=== PATIENT | female | born 1960 | race Caucasian/White ===

== ENCOUNTER 2019-11-01 17:19 | Outpatient (CLI) | payer OTHER, SELFPAY ==
--- NOTE | ~2019-11-01 | XR_ITS ---
XR ankle RT min 3V, XR foot RT min 3V 11/01/2019 17:57 (accession [id number]), 11/01/2019 17:58 (accession [id number]) Indication: Right ankle and foot pain Procedure: 4 views right ankle and 4 views right foot Comparison: No prior studies for comparison. Findings: There are degenerative calcaneal enthesophytes. Ankle mortise intact. There is cortical irr egularity to the proximal lateral aspect of the cuboid on the oblique view, suspicious for an avulsio n fracture.. Mild degenerative changes of the midfoot. Impression: 1: Possible cuboid avulsion fracture. Correlate for point tenderness.. Reviewed, dictated and finalized at location A. Impression: 1: Possible cuboid avulsion fracture. Correlate for point tenderness.. Impression: 1: Possible cuboid avulsion fracture. Correlate for point tenderness..
== END 2019-11-01 17:20 | disposition home or self-care (01) ==
LOC: ANHIMG 17:27
PROVIDERS: PCP Nurse Practitioner Family; Visit Provider Nurse Practitioner Family
DX: M79.671 Pain in right foot (principal)
CPT/HCPCS: 73610; 73630

== ENCOUNTER 2020-05-10 07:21 | Outpatient (CLI) | payer OTHER, SELFPAY ==
--- NOTE | ~2020-05-10 | MM_ITS ---
EXAMINATION: MM screening adriana BI w michael HISTORY: Screening mammogram TECHNIQUE: Craniocaudal and mediolateral oblique 3-D tomosynthesis images were obtained and synthetic 2-D images were generated. CAD analysis was submitted and interpreted. COMPARISON: No prior mammogram is available for comparison at this institution. BREAST PARENCHYMAL COMPOSITION: There are scattered areas of fibroglandular density. FINDINGS: There is no evidence of suspicious mass, calcification, or architectural distortion to sugg est malignancy in either breast. There has been no suspicious interval change. IMPRESSION: 1. No mammographic evidence of malignancy. 2. Recommend routine screening mammography in one year. BI-RADS Category 1: Negative Reviewed, dictated and finalized at location A.
== END 2020-05-10 07:22 | disposition home or self-care (01) ==
LOC: ANHIMG 07:25
PROVIDERS: PCP Nurse Practitioner Family; Visit Provider Nurse Practitioner Family
DX: Z12.31 Encounter for screening mammogram for malignant neoplasm of breast (principal)
CPT/HCPCS: 77063; 77067